=== PATIENT | male | born 1970 | race Caucasian/White ===

== ENCOUNTER → 2016-05-27 | Outpatient (CLI) | payer BC, OTHER ==
[~2016-05-27] MED LIST: FERR1TAB62 PO; ZNTT/150 PO
--- NOTE | 2016-05-27 08:48 | DIAGNOSTIC IMAGING REPORT ---
RIGHT ANKLE 3 VIEWS HISTORY: RIGHT ANKLE PAIN Right COMPARISON: None. FINDINGS: There is no fracture or dislocation. Soft tissues are unremarkable. 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 Small subcortical lucency within the medial talar dome. IMPRESSION: 1. No fracture or dislocation within the right ankle. 2. Small subcortical lucency within the medial talar dome. This could be due to degenerative change or an osteochondral defect. 3. 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 Electronically signed by: Rubens Agudelo M.D. 05/27/2016 8:47 AM Dictated Date/Time: 05/27/2016 8:45 AM
== END | disposition home or self-care (01) ==
LOC: C.RDSM 08:30
PROVIDERS: ATTEND Physician Assistant
DX: M25.571 Pain in right ankle and joints of right foot (principal); M19.071 Primary osteoarthritis, right ankle and foot